=== PATIENT | female | born 1945 | race Asian ===

== ENCOUNTER 2018-12-08 12:37 | Inpatient (IN) | payer OTHER ==
--- NOTE | 2018-12-08 13:37 | EDPHY ---
H & P Stated Complaint: left leg swelling, referred from primary r/o DVT Time Seen by Provider: 12/08/18 12:53 HPI/ROS: Chief Complaint: Leg pain and swelling HPI: 73-year-old woman presenting with 3 days of worsening left leg pain and swelling. Patient presented to her primary care physician today for complaints of cough. They noted significant swelling in her left leg and calf. Patient states that this is been present for 2 days. Patient was sent down from primary care office for evaluation for DVT. The patient has had a little bit of shortness of breath and some mild pain with inspiration on the right side occasionally. She has been a little more more +couple weeks because of the snow. No recent travel. Does have a history of type 2 diabetes. Is on metformin and Lantus. Cough has been nonproductive. Has had some mild shortness of breath. ROS: 10 systems were reviewed and were negative except those elements noted in the HPI. PMH: Type 2 diabetes Social History: No smoking, no alcohol, no recreational drug use Family History: non-contributory Physical Exam: Gen: Awake, Alert, No Distress HEENT: Nose: no rhinorrhea Eyes: PERRLA, EOMI Mouth: Moist mucosa Neck: Supple, no JVD Chest: nontender, lungs clear to auscultation Heart: S1, S2 normal, no murmur Abd: Soft, non-tender, no guarding Back: no CVA tenderness, no midline tenderness Ext: Left calf is 38 cm right calf is 32 cm. Left calf is swollen and tense. Nonpitting edema. Right calf is soft. There is no erythema. Patient has tenderness with swelling up into her thigh as well. Skin: no rash Neuro: CN II-XII intact, Sensation grossly intact, Strength 5/5 in bilateral upper and lower extremities - Medical/Surgical History Hx Asthma: No Hx Chronic Respiratory Disease: No Hx Diabetes: Yes Hx Cardiac Disease: No Hx Renal Disease: No Hx Cirrhosis: No Hx Alcoholism: No Hx HIV/AIDS: No Hx Splenectomy or Spleen Trauma: No Other PMH: htn, restless legs, benign mass left parotid, diabetes - Social History Smoking Status: Former smoker Constitutional: Initial Vital Signs Temperature (C) 36.6 C 12/08/18 12:52 Heart Rate 104 H 12/08/18 12:52 Respiratory Rate 18 12/08/18 12:52 Blood Pressure 131/89 H 03/12/19 12:52 O2 Sat (%) 97 12/08/18 12:52 O2 Delivery Mode Room Air Allergies/Adverse Reactions: No Known Allergies Allergy (Unverified 12/08/18 12:57) Home Medications: Medication Instructions Recorded Ranitidine HCl 05/09/16 LYRICA 12/08/18 Lantus 12/08/18 Sleep Aid 12/08/18 Medical Decision Making - Diagnostics Imaging Results: Imaging Impressions Extremity Venous Study 12/08/18 13:16 Impression: Left leg positive deep venous thrombosis involving the left femoral vein, left common femoral vein, and possibly left common iliac vein. Findings and recommendations discussed with Emergency Department physician, Guerrero Loomis M.D., at 1420 hours, on December 08, 2018. Final report concurs with initial preliminary interpretation. ED Course/Re-evaluation: Ultrasound results noted. Patient has extensive clot that might extended to the iliacs. I have discussed with Dr. Martinez, interventional radiology. He has reviewed the ultrasound and is [place] is likely amenable to tPA. He agrees with the plan to start heparin drip here. No further investigations or dye load. Patient could possibly have a PE but she will be anticoagulated anyway. She will be able to have further workup in-hospital. I have discussed with Dr. Malik Boucher, hospitalist. He will admit to his service. Patient does not currently have findings suggesting phlegmasia cerlua dolens, but this is a concern given the size of this clot. Departure - Departure Disposition: [facility] Inpatient Acute Clinical Impression: DVT (deep venous thrombosis) Condition: Fair Referrals: Alexandria Magallon DO [Primary Care Provider] - As per Instructions
[2018-12-08] MEDS ORDERED: HEPARIN/DEXTROSE 500 ML IV ONE (14:38)
[2018-12-08] MEDS ORDERED: HEPARIN 10,000 UNIT/10 ML MDV (1,000 UNIT/ML) IVP ONE (14:38)
[2018-12-08 16:38] LABS: PLATELET COUNT 164 10^3/uL (150-400)
[2018-12-08 17:08] LABS: INR 1.15 (0.83-1.16); PROTIME(PATIENT) 14.2 SEC (12.0-15.0)
[2018-12-08] MEDS ORDERED: ONDANSETRON DISINTEGRATING 4 MG TAB PO PRN (18:07)
[2018-12-08] MEDS ORDERED: ONDANSETRON 4 MG/2 ML VIAL IVP PRN (18:07)
--- NOTE | 2018-12-08 18:28 | HOSPPROG ---
Hospitalist Progress Note Assessment/Plan: patient seen/examined/discussed w VLAD booker. Large proximal L leg DVT. consideration of catheter directed thrombolysis. agree w plan as outlined Objective: Vital Signs Temp Pulse Resp BP Pulse Ox 36.9 C 99 25 H 144/85 H 95 12/08/18 17:37 12/08/18 17:37 12/08/18 17:37 12/08/18 17:37 12/08/18 17:37 Laboratory Results 12/08/18 15:08 12/08/18 15:08 PT 14.2 SEC (12.0-15.0) 12/08/18 15:08 INR 1.15 (0.83-1.16) 12/08/18 15:08 ICD10 Worksheet Patient Problems: Problems Problem Status Onset DVT (deep venous thrombosis) Acute
[2018-12-08] MEDS ORDERED: HEPARIN/DEXTROSE 500 ML IV SCH (18:30)
[2018-12-08] MEDS ORDERED: HEPARIN 10,000 UNIT/10 ML MDV (1,000 UNIT/ML) IVP PRN (18:30)
[2018-12-08] MEDS ORDERED: D50W 25 GM/50 ML SYR IVP PRN (18:41)
--- NOTE | 2018-12-08 18:54 | PDGENHP ---
History and Physical - Chief Complaint Left lower extremity pain and swelling - History of Present Illness 73 y/o female w/ hx of hypertension, left parotid benign mass, diabetes II, and diabetic neuropathy presents from urgent care w/ c/o left lower extremity pain and swelling that has persisted for 3 days. She has a mild cough, feels short of breath, and c/o right-sided chest pain w/ deep inspiration. Doppler was performed and it shows she has an extensive DVT involving the femoral vein, common femoral vein and possibly the common iliac vein. No recent travel. Leads a mostly sedentary lifestyle. She was transferred from urgent care to here for further treatment and monitoring. Denies nausea, vomiting, diarrhea, constipation, palpitations, fever, chills. History Information - Allergies/Home Medication List Allergies/Adverse Reactions: No Known Allergies Allergy (Unverified 12/08/18 12:57) Home Medications: Ranitidine HCl 05/09/16 [Last Taken Unknown] LYRICA 12/08/18 [Last Taken Unknown] Lantus 12/08/18 [Last Taken Unknown] Sleep Aid 12/08/18 [Last Taken Unknown] I have personally reviewed and updated: family history, medical history, social history, surgical history - Past Medical History diabetes type 2, hypertension Additional medical history: Left parotid benign mass. Diabetic neuropathy - Surgical History Additional surgical history: Parotidectomy (2015) - Family History Positive for: diabetes type II, CAD - Social History Smoking Status: Former smoker Alcohol Use: None Drug Use: None Additional social history: Lives in [place]. Came here in September 2018. . Review of Systems Review of Systems: ROS: 10pt was reviewed & negative except for what was stated in HPI & below Physical Exam Physical Exam: Lab data and imaging were reviewed. Case discussed w/admitting physician, Dr. Damion Boucher, and IR Dr. Rick Spann. US Doppler: see HPI BUN/Cr: 20/1.0 Temp Pulse Resp BP Pulse Ox 36.9 C 103 H 32 H 152/76 H 96 12/08/18 17:37 12/08/18 18:36 12/08/18 18:36 12/08/18 18:36 12/08/18 18:36 Constitutional: no apparent distress, appears nourished, uncomfortable Eyes: PERRL, anicteric sclera, EOMI Ears, Nose, Mouth, Throat: moist mucous membranes, hearing normal, ears appear normal, no oral mucosal ulcers Cardiovascular: regular rate and rhythym, no murmur, rub, or gallop, tachycardia , No edema Peripheral Pulses: 2+: dorsalis-pedis (R) (Radial 2+), dorsalis-pedis (L) ( Radial 2+; pedal pulse easily palpable) Respiratory: reduced air movement Gastrointestinal: normoactive bowel sounds, soft, non-tender abdomen, no palpable masses Genitourinary: no bladder fullness, no bladder tenderness Skin: warm, normal color (LLE edematous), other Musculoskeletal: pain with ROM (LLE) Neurologic: AAOx3, sensation intact bilaterally, CN II-XII Intact Psychiatric: interacting appropriately, not anxious, not encephalopathic, thought process linear Lymph, Heme, Immunologic: no cervical LAD, no supraclavicular LAD Lab Data & Imaging Review 12/08/18 15:08 12/08/18 15:08 WBC 8.19 10^3/uL (3.80-9.50) 12/08/18 15:08 RBC 4.92 10^6/uL (4.18-5.33) 12/08/18 15:08 Hgb 14.1 g/dL (12.6-16.3) 12/08/18 15:08 Hct 41.6 % (38.0-47.0) 12/08/18 15:08 MCV 84.6 fL (81.5-99.8) 12/08/18 15:08 MCH 28.7 pg (27.9-34.1) 12/08/18 15:08 MCHC 33.9 g/dL (32.4-36.7) 12/08/18 15:08 RDW 12.9 % (11.5-15.2) 12/08/18 15:08 Plt Count 164 10^3/uL (150-400) 12/08/18 15:08 MPV 10.1 fL (8.7-11.7) 12/08/18 15:08 Neut % (Auto) 70.9 % (39.3-74.2) 12/08/18 15:08 Lymph % (Auto) 20.8 % (15.0-45.0) 12/08/18 15:08 [place] % (Auto) 6.3 % (4.5-13.0) 12/08/18 15:08 Eos % (Auto) 1.6 % (0.6-7.6) 12/08/18 15:08 Baso % (Auto) 0.2 % (0.3-1.7) L 12/08/18 15:08 Nucleat RBC Rel Count 0.0 % (0.0-0.2) 12/08/18 15:08 Absolute Neuts (auto) 5.80 10^3/uL (1.70-6.50) 12/08/18 15:08 Absolute Lymphs (auto) 1.70 10^3/uL (1.00-3.00) 12/08/18 15:08 Absolute Monos (auto) 0.52 10^3/uL (0.30-0.80) 12/08/18 15:08 Absolute Eos (auto) 0.13 10^3/uL (0.03-0.40) 12/08/18 15:08 Absolute Basos (auto) 0.02 10^3/uL (0.02-0.10) 12/08/18 15:08 Absolute Nucleated RBC 0.00 10^3/uL (0-0.01) 12/08/18 15:08 Immature Gran % 0.2 % (0.0-1.1) 12/08/18 15:08 Immature Gran # 0.02 10^3/uL (0.00-0.10) 12/08/18 15:08 PT 14.2 SEC (12.0-15.0) 12/08/18 15:08 INR 1.15 (0.83-1.16) 12/08/18 15:08 APTT 26.8 SEC (23.0-38.0) 12/08/18 15:08 Sodium 133 mEq/L (135-145) L 12/08/18 15:08 Potassium 4.8 mEq/L (3.5-5.2) 12/08/18 15:08 Chloride 108 mEq/L (97-110) 12/08/18 15:08 Carbon Dioxide 20 mEq/l (22-31) L 12/08/18 15:08 Anion Gap 5 mEq/L (6-14) L 12/08/18 15:08 BUN 20 mg/dL (7-23) 12/08/18 15:08 Creatinine 1.0 mg/dL (0.6-1.0) 12/08/18 15:08 Estimated GFR 55 12/08/18 15:08 Glucose 225 mg/dL (70-100) H 12/08/18 15:08 Calcium 8.7 mg/dL (8.5-10.4) 12/08/18 15:08 Assessment & Plan Assessment: 73 y/o female w/ hx of DM II, diabetic neuropathy, hx of left parotid benign mass s/p parotidectomy in 2016, RLS, and HTN presents from urgent care w/ extensive LLE DVT. Heparin drip was initiated at urgent care before she was transferred to our facilities. 1. Acute LLE DVT: Femoral vein, common femoral vein, and possibly common iliac vein involved. Palpable pulse 2+, sensation intact, skin is warm no discoloration. Edematous. Phlegmasia cerulea dolens not present. -IR consulted - I spoke to Dr. Rick Spann who will perform catheter thrombolytics in AM -Heparin drip initiated in house -Cont monitoring 2. Shortness of breath: She is saturating on RA 97% however has been tachycardic throughout her stay (running 99-103 bpm). Considering her condition as listed above, she is at high risk for pulmonary embolism. -Chest CTA pending to evaluate possible PE/PEs -on heparin drip 3. Diabetes: ISS while in house, glucose checks TID before meals. Will continue her home lantus once medications have been reconciled by pharmacy. 4. HTN: stable at this time. Continue to monitor. Diet: Card-controlled, NPO at midnight tonight VTE ppx: Heparin drip Code: Full Dispo: Admit to inpatient
[2018-12-08] MEDS ORDERED: IOPAMIDOL (ISOVUE 370) 100 ML BTL IV ONE (20:16)
[2018-12-09 04:44] LABS: PLATELET COUNT 164 10^3/uL (150-400)
[2018-12-09] MEDS ORDERED: GUAIFENESIN/DM 10 ML UDCUP PO PRN (04:48)
[2018-12-09] MEDS ORDERED: PROTAMINE SULFATE 50 MG/5 ML VIAL IVP PRN (07:36)
[2018-12-09] MEDS ORDERED: fentaNYL 100 MCG/2 ML INJ IVP PRN (07:36)
[2018-12-09] MEDS ORDERED: MEPERIDINE 25 MG/ML SYR IVP PRN (07:36)
[2018-12-09] MEDS ORDERED: FLUMAZENIL 0.5 MG/5 ML MDV IVP PRN (07:36)
[2018-12-09] MEDS ORDERED: MIDAZOLAM 2 MG/2 ML VIAL IVP PRN (07:36)
[2018-12-09] MEDS ORDERED: HEPARIN 10,000 UNIT/10 ML MDV (1,000 UNIT/ML) IVP PRN (07:36)
[2018-12-09] MEDS ORDERED: GLUCAGON HCL 1 MG VIAL IVP PRN (07:36)
[2018-12-09] MEDS ORDERED: NALOXONE HCL 0.4 MG/ML INJ IVP PRN (07:36)
[2018-12-09] MEDS ORDERED: ALTEPLASE 2 MG VIAL IVP PRN (07:36)
[2018-12-09] MEDS: INSULIN LISPRO 100 UNIT/ML SC SCH ×3 (09:12→19:42)
[2018-12-09 09:22] LABS: INR 1.25 (0.83-1.16); PROTIME(PATIENT) 15.2 SEC (12.0-15.0)
--- NOTE | 2018-12-09 10:04 | PDHPUP ---
History & Physical Update H&P update statement: This history and physical update is based on an assessment of the patient which was completed after admission or registration (within 24 hours), but prior to the surgery/procedure. Massive LLE DVT with probable extension into iliac vessels. Plan for catheter directed thrombolysis. H&P update: H&P reviewed & patient examined, no change in patient's condition since H&P completed
--- NOTE | 2018-12-09 10:04 | PDPROPOC ---
Sedation Plan of Care Sedation Plan of Care: vital signs stable, mental status noted, patient educated of risks, benefits, alternatives, patient can tolerate sedation ASA Classification: ASA 2 Planned drugs: fentanyl, midazolam Mallampati Score: Class 2 Mallampati Reference Image: Patient passed 3-3-2 rule?: Yes
[2018-12-09] MEDS ORDERED: IOPAMIDOL (ISOVUE-300) 100 ML BTL ONE (10:11)
[2018-12-09] MEDS ORDERED: MIDAZOLAM 2 MG/2 ML VIAL ONE ×2 (10:20→10:40)
[2018-12-09] MEDS ORDERED: FLUMAZENIL 0.5 MG/5 ML MDV IVP ONE (10:20)
[2018-12-09] MEDS ORDERED: NALOXONE HCL 0.4 MG/ML INJ ONE (10:21)
[2018-12-09] MEDS ORDERED: fentaNYL 100 MCG/2 ML INJ ONE (10:21)
[2018-12-09] MEDS ORDERED: ALTEPLASE 5 MG in NS 100 ML IV ONE (11:00)
[2018-12-09] MEDS ORDERED: LIDOCAINE 1% 300 MG/30 ML SDV ONE (13:05)
--- NOTE | 2018-12-09 17:22 | PDRADPN ---
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 Initiation of catheter directed thombolysis. Inf/Abcess present in the surg proc area at time of surgery?: No
[2018-12-09] MEDS ORDERED: HEPARIN/DEXTROSE 500 ML IV SCH (17:30)
[2018-12-09] MEDS ORDERED: ALTEPLASE 5 MG in NS 100 ML IV SCH (17:30)
[2018-12-09] MEDS: ALTEPLASE 5 MG in NS 100 ML IV SCH (20:49)
--- NOTE | 2018-12-09 20:50 | ASMTCMCOM ---
CM Note CM Note Notes: Pt discussed in multi-discipline rounds. Pt is a 73yr old female admitted with left leg pain for 3 days, slight cough and SOB. Test/Scans showed a large DVT. Pt admitted for Heparin IV therapy overnight and to Intervention Radiology this morning for a thrombectomy. CM available should needs arise. Plan: TBD Date Signed: 12/09/2018 08:49 PM Electronically Signed By:Dania Fields
[2018-12-09] MEDS: INSULIN GLARGINE 100 UNITS/ML UNIT SC SCH (21:10)
[2018-12-09] MEDS: MELATONIN 3 MG TAB PO SCH (21:29)
--- NOTE | 2018-12-09 21:59 | PDMN ---
Medical Necessity Medical necessity: Pt meets inpt criteria per MD order and MCG M-350, Deep Venous Thrombosis of Lower Extremities, A-4 days. 73 y/o w/hx DM type 2, diabetic neuropathy, hx L parotid benign mass and paotidectomy, RLS, and HTN presented to ED from urgent care w/extensive LLE DVT, SOB, tachy, at high risk for PE. 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 Est LOS>2MN for ongoing eval/management of above .
[2018-12-10] MEDS: ALTEPLASE 5 MG in NS 100 ML IV SCH ×3 (02:02→13:12)
[2018-12-10 05:08] LABS: PLATELET COUNT 144 10^3/uL (150-400)
[2018-12-10] MEDS: INSULIN LISPRO 100 UNIT/ML SC SCH ×3 (07:57→18:43)
--- NOTE | 2018-12-10 13:40 | HOSPPROG ---
Hospitalist Progress Note Assessment/Plan: [age] female admitted with large left proximal DVT. Acute LLE DVT: Femoral vein, common femoral vein, and possibly common iliac vein involved. Taken to IR yesterday for lysis. Drain in. Plan to return to IR today. -continue heparin drip -iron to see Diabetes: ISS while in house, glucose checks TID before meals. Will continue her home lantus once medications have been reconciled by pharmacy. HTN: stable at this time. Continue to monitor. Diet: Diabetic VTE ppx: Heparin drip Code: Full Dispo: ICU while on tPA Subjective: Still some discomfort in the left leg but diminished. Objective: Vital Signs Temp Pulse Resp BP Pulse Ox 36.9 C 104 H 23 H 135/74 H 95 12/10/18 08:00 12/10/18 12:00 12/10/18 12:00 12/10/18 12:00 12/10/18 12:00 Laboratory Results 12/10/18 05:00 12/10/18 05:00 12/09/18 12/10/18 12/11/18 05:59 05:59 05:59 Intake Total 759 957 Output Total 450 Balance 759 507 PT 15.2 SEC (12.0-15.0) H 12/09/18 08:50 INR 1.25 (0.83-1.16) H 12/09/18 08:50 - Physical Exam Constitutional: no apparent distress, appears nourished, not in pain Eyes: PERRL, anicteric sclera, EOMI Ears, Nose, Mouth, Throat: moist mucous membranes, hearing normal, ears appear normal, no oral mucosal ulcers Cardiovascular: regular rate and rhythym, no murmur, rub, or gallop Respiratory: no respiratory distress, no rales or rhonchi, clear to auscultation Gastrointestinal: normoactive bowel sounds, soft, non-tender abdomen, no palpable masses Genitourinary: no bladder fullness, no bladder tenderness, no renal bruits Skin: no rashes or abrasions, no fluctuance, no induration Musculoskeletal: full muscle strength, no muscle tenderness, normal joint ROM, other (Left lower extremity with catheter in. Substantial swelling although improved from yesterday.) Neurologic: AAOx3, sensation intact bilaterally Psychiatric: interacting appropriately, not anxious, not encephalopathic, thought process linear Lymph, Heme, Immunologic: no cervical LAD, no supraclavicular LAD ICD10 Worksheet Patient Problems: Problems Problem Status Onset DVT (deep venous thrombosis) Acute
[2018-12-10] MEDS ORDERED: MEPERIDINE 25 MG/ML SYR IVP PRN (16:20)
[2018-12-10] MEDS ORDERED: MIDAZOLAM 2 MG/2 ML VIAL IVP PRN (16:20)
[2018-12-10] MEDS ORDERED: NALOXONE HCL 0.4 MG/ML INJ IVP PRN (16:20)
[2018-12-10] MEDS ORDERED: fentaNYL 100 MCG/2 ML INJ IVP PRN (16:20)
[2018-12-10] MEDS ORDERED: FLUMAZENIL 0.5 MG/5 ML MDV IVP PRN (16:20)
[2018-12-10] MEDS ORDERED: NS 1,000 ML IV SCH (16:30)
[2018-12-10] MEDS ORDERED: IOPAMIDOL (ISOVUE-300) 100 ML BTL ONE ×2 (17:12→18:55)
--- NOTE | 2018-12-10 18:22 | PDRADPN ---
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 STENTED FOR MAY-THURNER SYNDROME. LONG SEGMENT ILIAC STENOSIS. Inf/Abcess present in the surg proc area at time of surgery?: No
[2018-12-10] MEDS: APIXABAN 5 MG TAB PO SCH (21:22)
[2018-12-10] MEDS: INSULIN GLARGINE 100 UNITS/ML UNIT SC SCH (21:22)
[2018-12-11] MEDS: MELATONIN 3 MG TAB PO SCH ×2 (00:09→20:40)
[2018-12-11 05:34] LABS: PLATELET COUNT 148 10^3/uL (150-400)
[2018-12-11] MEDS: INSULIN LISPRO 100 UNIT/ML SC SCH ×3 (07:40→17:08)
[2018-12-11] MEDS: APIXABAN 5 MG TAB PO SCH ×2 (09:07→20:40)
--- NOTE | 2018-12-11 11:59 | ASMTCMCOM ---
CM Note CM Note Notes: Pt is here from [place] visiting with son Mohsen ) for a month or so. PT and OT to consult. Son is Ok if rehab is recommended to get Pt stronger and he does not have a choice where she goes. Pt will likely transfer out of ICU to a floor today after her CXR. Pt with a cough and developing soreness in her chest. Pt will be staying with her Son and his here in [place], they: both" Work during the day. CM available for needs. PLAN TBD once PT/OT consults Date Signed: 12/11/2018 11:58 AM Electronically Signed By:Dania Fields
--- NOTE | 2018-12-11 16:37 | HOSPPROG ---
Hospitalist Progress Note Assessment/Plan: [age] year female admitted with large left proximal DVT. undwernt thrombolysis and stent placement for January Thurner. 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 underwent thrombolysis and stent placement. Transitioned over to eliquis today. -Eliquis 10mg bid X7 days then 5mg BID Diabetes: ISS while in house, glucose checks TID before meals. resume home lantus. HTN: stable at this time. Continue to monitor. Diet: Diabetic VTE ppx: Heparin drip Code: Full Dispo: inpatient, planned to discharge today but son and family concerned she is too weak on her leg after stent. Awaiting PT/OT assessment prior to dc. Likely dc in am. Subjective: leg still hurts. no other complaints. Objective: Vital Signs Temp Pulse Resp BP Pulse Ox 37.4 C 110 H 28 H 133/81 H 95 12/11/18 15:58 12/11/18 15:58 12/11/18 15:58 12/11/18 15:58 12/11/18 15:58 Laboratory Results 12/11/18 05:15 12/11/18 05:15 12/10/18 12/11/18 12/12/18 05:59 05:59 05:59 Intake Total 957 1750 Output Total 450 850 275 Balance 507 900 -275 PT 15.2 SEC (12.0-15.0) H 12/09/18 08:50 INR 1.25 (0.83-1.16) H 12/09/18 08:50 - Physical Exam Constitutional: no apparent distress, appears nourished, not in pain Eyes: PERRL, anicteric sclera, EOMI Ears, Nose, Mouth, Throat: moist mucous membranes, hearing normal, ears appear normal, no oral mucosal ulcers Cardiovascular: regular rate and rhythym, no murmur, rub, or gallop Respiratory: no respiratory distress, no rales or rhonchi, clear to auscultation Gastrointestinal: normoactive bowel sounds, soft, non-tender abdomen, no palpable masses Genitourinary: no bladder fullness, no bladder tenderness, no renal bruits Skin: no rashes or abrasions, no fluctuance, no induration Musculoskeletal: full muscle strength, no muscle tenderness, normal joint ROM Neurologic: AAOx3, sensation intact bilaterally Psychiatric: interacting appropriately, not anxious, not encephalopathic, thought process linear Lymph, Heme, Immunologic: no cervical LAD, no supraclavicular LAD ICD10 Worksheet Patient Problems: Problems Problem Status Onset DVT (deep venous thrombosis) Acute
[2018-12-11] MEDS ORDERED: BISACODYL 10 MG SUPP PR PRN (16:38)
[2018-12-11] MEDS ORDERED: LACTULOSE 20 GM/30 ML UDCUP PO PRN (16:38)
[2018-12-11] MEDS ORDERED: MAGNESIUM HYDROXIDE 30 ML UDCUP PO PRN (16:38)
[2018-12-11] MEDS: SENNOSIDES/DOCUSATE SODIUM TAB PO SCH ×2 (17:03→20:40)
[2018-12-11] MEDS: BENZONATATE 100 MG CAP PO PRN (17:04)
[2018-12-11] MEDS: HYDROCODONE/APAP 5/325 TAB PO PRN (20:50)
[2018-12-11] MEDS: INSULIN GLARGINE 100 UNITS/ML UNIT SC SCH (22:14)
[2018-12-12] MEDS: INSULIN LISPRO 100 UNIT/ML SC SCH ×3 (08:44→17:09)
[2018-12-12] MEDS: HYDROCODONE/APAP 5/325 TAB PO PRN ×2 (09:03→22:08)
[2018-12-12] MEDS: SENNOSIDES/DOCUSATE SODIUM TAB PO SCH ×2 (09:04→22:08)
[2018-12-12] MEDS: APIXABAN 5 MG TAB PO SCH ×2 (09:04→22:08)
[2018-12-12] MEDS: PREGABALIN 50 MG CAP PO SCH ×2 (09:51→22:08)
[2018-12-12] MEDS: ACETAMINOPHEN 325 MG TAB PO PRN (12:31)
[2018-12-12] MEDS: POLYETHYLENE GLYCOL 3350 17 GM PKT PO PRN (12:31)
--- NOTE | 2018-12-12 14:50 | ASMTCMCOM ---
CM Note CM Note Notes: 12/12/2018 Case Management Note Met w/pt and son Mohsen to discuss d/c needs. Pt lives part of the year here in [place] with son and part of the year with daughter in [facility]. Team is recommending SNF rehab. Pt in agreement. Provided SNF list. Pt and son requested referrals to [facility] and [facility]. [facility] is top choice. Faxed via [employer]. SNF will need to get auth prior to accepting patient. Case Management d/c poc: SNF rehab pending acceptance and auth. Case Management to follow. Date Signed: 12/12/2018 02:49 PM Electronically Signed By:Latonia Mckeon RN
--- NOTE | 2018-12-12 15:10 | HOSPPROG ---
Hospitalist Progress Note Assessment/Plan: [age] year female admitted with large left proximal DVT. undwernt thrombolysis and stent placement for May Thurner. 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 underwent thrombolysis and stent placement. Transitioned to [facility] PNA: started on levofloxacin generalized weakness: limiting ability to dc home, discussed with CM/nursing and patients son--recommendation is for SNF but unclear if patient would be amenable to that--son will discuss with her Diabetes: ISS while in house, glucose checks TID before meals. resume home lantus. HTN: stable at this time. Continue to monitor. Diet: Diabetic VTE ppx: eliquis Code: Full Dispo: inpatient, ? dc to snf Subjective: no significant overnight events, patient remains weak but able to walk short distances with walker Objective: Vital Signs Temp Pulse Resp BP Pulse Ox 36.8 C 103 H 20 112/64 93 12/12/18 11:09 12/12/18 11:09 12/12/18 11:09 12/12/18 11:09 12/12/18 11:09 Microbiology 12/11/18 20:50 Respiratory Panel (PCR) - Final Nasal, Sinus - Anaerobic Tube/Swab No Organism Detected By Pcr Laboratory Results 12/11/18 05:15 12/11/18 05:15 12/11/18 12/12/18 12/13/18 05:59 05:59 05:59 Intake Total 1750 1460 Output Total 850 1675 500 Balance 900 -215 -500 PT 15.2 SEC (12.0-15.0) H 12/09/18 08:50 INR 1.25 (0.83-1.16) H 12/09/18 08:50 dConstitutional: no apparent distress, appears nourished, not in pain Eyes: anicteric sclera, EOMI Ears, Nose, Mouth, Throat: hearing normal Cardiovascular: regular rate and rhythym, no murmur, rub, or gallop Respiratory: no respiratory distress, no rales or rhonchi, clear to auscultation Gastrointestinal: normoactive bowel sounds, soft, non-tender abdomen, no palpable masses Skin: no rashes or abrasions, no fluctuance, no induration Musculoskeletal: full muscle strength, no muscle tenderness, normal joint ROM Neurologic: AAOx3, sensation intact bilaterally Psychiatric: interacting appropriately, not anxious, not encephalopathic, thought process linear - Time Spent With Patient Time Spent with Patient: greater than 35 minutes Time Spent with Patient: Greater than 35 minutes spent on this patients care, greater than 50% of time spent counseling, educating, and coordinating care regarding the above mentioned plan. ICD10 Worksheet Patient Problems: Problems Problem Status Onset DVT (deep venous thrombosis) Acute
[2018-12-12] MEDS: INSULIN GLARGINE 100 UNITS/ML UNIT SC SCH (22:07)
[2018-12-12] MEDS: MELATONIN 3 MG TAB PO SCH (22:08)
[2018-12-13 05:25] LABS: PLATELET COUNT 154 10^3/uL (150-400)
[2018-12-13] MEDS: INSULIN LISPRO 100 UNIT/ML SC SCH ×3 (09:22→18:33)
[2018-12-13] MEDS: APIXABAN 5 MG TAB PO SCH ×2 (10:28→20:18)
[2018-12-13] MEDS: PREGABALIN 50 MG CAP PO SCH ×2 (10:28→20:18)
[2018-12-13] MEDS: SENNOSIDES/DOCUSATE SODIUM TAB PO SCH ×2 (10:28→20:19)
[2018-12-13] MEDS: POLYETHYLENE GLYCOL 3350 17 GM PKT PO PRN (10:34)
[2018-12-13] MEDS: ACETAMINOPHEN 325 MG TAB PO PRN ×2 (10:39→21:01)
--- NOTE | 2018-12-13 12:25 | ASMTCMCOM ---
CM Note CM Note Notes: 12/13/2018 Case Management Note Discussed with this morning. Spoke with Martha from [facility] on the phone and requested auth. Case Management d/c poc: [facility] SN[facility] rehab pending auth. Case Management to follow. Date Signed: 12/13/2018 12:24 PM Electronically Signed By:Latonia Mckeon RN
--- NOTE | 2018-12-13 16:32 | HOSPPROG ---
Hospitalist Progress Note Assessment/Plan: [age] year female admitted with large left proximal DVT. undwernt thrombolysis and stent placement for May Thurner. 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 underwent thrombolysis and stent placement. Transitioned to eliquis. Overall doing well, son concerned about residual left ankle swelling though in general leg looks better, recommending elevation LLL PNA: started on levofloxacin and symptomatically improved, transition to oral for dc, would complete 7 day course generalized weakness: limiting ability to dc home, discussed with CM/nursing and patients son--recommendation is for SNF, CM involved in setting that up Diabetes: ISS while in house, glucose checks TID before meals. resume home lantus. HTN: stable at this time. Continue to monitor. Diet: Diabetic VTE ppx: eliquis Code: Full Dispo: inpatient, ? dc to snf Subjective: no significant overnight events, patient feeling a bit better, did have some eye crusting this am but no discharge Objective: Vital Signs Temp Pulse Resp BP Pulse Ox 36.6 C 81 19 114/68 97 12/13/18 15:37 12/13/18 15:37 12/13/18 15:37 12/13/18 15:37 12/13/18 15:37 Laboratory Results 12/13/18 05:10 12/13/18 05:10 12/12/18 12/13/18 12/14/18 05:59 05:59 05:59 Intake Total 1460 1660 Output Total 1675 500 Balance -215 1160 PT 15.2 SEC (12.0-15.0) H 12/09/18 08:50 INR 1.25 (0.83-1.16) H 12/09/18 08:50 awake alert anicteric, sclera clear, no discharge op clear rrr no mrg left basilar rales, good air mvmt soft nt nd lle edematous warm dry well perfused oriented appropriate ICD10 Worksheet Patient Problems: Problems Problem Status Onset DVT (deep venous thrombosis) Acute
[2018-12-13] MEDS: MELATONIN 3 MG TAB PO SCH (20:18)
[2018-12-13] MEDS: INSULIN GLARGINE 100 UNITS/ML UNIT SC SCH (21:01)
[2018-12-14] MEDS: TEARS/DEXTRAN 70/HYPROMELLOSE 15 ML OPHT.BTL EACHEYE PRN ×2 (06:18→21:25)
[2018-12-14] MEDS: INSULIN LISPRO 100 UNIT/ML SC SCH ×3 (09:57→18:53)
[2018-12-14] MEDS: PREGABALIN 50 MG CAP PO SCH ×2 (10:32→21:22)
[2018-12-14] MEDS: SENNOSIDES/DOCUSATE SODIUM TAB PO SCH ×2 (10:32→21:22)
[2018-12-14] MEDS: APIXABAN 5 MG TAB PO SCH ×2 (10:33→21:22)
--- NOTE | 2018-12-14 12:58 | HOSPPROG ---
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, status post successful thrombolysis and stent placement -on Eliquis at this time and will continue that * Left lower lobe pneumonia, improving on Levaquin; 5 days of treatment should be sufficient to manage this * Generalized weakness and deconditioning, gait instability with high fall risk in a patient on anticoagulant -plan is to [facility] the patient [facility] * Newly identified subareolar mass in the right breast by her CT scan in the ER along with several small lung nodules -I have discussed these findings on the CT scan with the patient and son at the bedside today in detail -I will have Dr. Molly Herrera visit the patient for examination and review of the CT scan findings and make plans for more definitive assessment -if excision is recommended, would delay that until she has been on anticoagulant for a couple weeks or more in order to ensure that she has good outcome after her thrombolysis and stent placement left leg * Diabetes mellitus on insulin * Hypertension on therapy Seen by me on hospitals rounds as well as multidisciplinary rounds today I have consulted Dr. 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, my review: Sinus rhythm Exam: (seen at the bedside today with her son; her son acted as finisher plate intermittently as needed which is the preference of the patient and son instead of using the online service that we have here) alert oriented skin warm dry color ok resps not labored lungs clear BSs heart regular abd soft nondistended nontender, bowel sounds present limbs warm, no edema iv site ok Lab data: Blood sugars are fluctuating a bit, mostly in good range for inpatient care, occasionally slightly over 200 Objective: Vital Signs Temp Pulse Resp BP Pulse Ox 36.9 C 98 24 H 119/75 97 12/14/18 12:00 12/14/18 12:00 12/14/18 12:00 12/14/18 12:00 12/14/18 12:00 Laboratory Results 12/13/18 05:10 12/13/18 05:10 12/13/18 12/14/18 12/15/18 06:59 06:59 06:59 Intake Total 1660 1180 Output Total 500 Balance 1160 1180 PT 15.2 SEC (12.0-15.0) H 12/09/18 08:50 INR 1.25 (0.83-1.16) H 12/09/18 08:50 - Time Spent With Patient Time Spent with Patient: greater than 35 minutes Time Spent with Patient: Greater than 35 minutes spent on this patients care, greater than 50% of time spent counseling, educating, and coordinating care regarding the above mentioned plan. ICD10 Worksheet Patient Problems: Problems Problem Status Onset DVT (deep venous thrombosis) Acute
[2018-12-14] MEDS: MELATONIN 3 MG TAB PO SCH (21:22)
[2018-12-14] MEDS: ACETAMINOPHEN 325 MG TAB PO PRN (21:23)
[2018-12-14] MEDS: INSULIN GLARGINE 100 UNITS/ML UNIT SC SCH (21:29)
[2018-12-15] MEDS: SENNOSIDES/DOCUSATE SODIUM TAB PO SCH (08:40)
[2018-12-15] MEDS: INSULIN LISPRO 100 UNIT/ML SC SCH ×2 (08:40→13:16)
[2018-12-15] MEDS: BENZONATATE 100 MG CAP PO PRN (08:40)
[2018-12-15] MEDS: PREGABALIN 50 MG CAP PO SCH (08:40)
[2018-12-15] MEDS: APIXABAN 5 MG TAB PO SCH (08:40)
--- NOTE | 2018-12-15 15:33 | PDIAF ---
- Diagnosis Diagnosis: DVT/May Garcia left leg s/p lysis, stent; pneumonia; subareolar nodule righ Code Status: Full Code - Medication Management Additional Medication Instructions: LEVAQUIN to be stopped after December 18 dose. ELIQUIS 10 mg twice daily should be decreased to 5 mg twice daily after December 17 doses Discharge Medications: electronically signed and located in the Home Medication List. - Orders Services needed: Registered Nurse, Certified Leaf Fat Scraper, Master Director Of Pupil Personnel Program , Physical Therapy, Occupational Therapy Diet Recommendation: no restrictions on diet Diet Texture: Regular Texture Diet Activity/Weight Bearing Restrictions: Full weight-bearing allowed Equipment: Walker - Follow Up Care Current Providers and Referrals: Molly Herrera MD [Medical Doctor] - Alexandria Magallon DO [Primary Care Provider] - As per Instructions
[2018-12-15 15:38] VITALS: BP 141/90
--- NOTE | 2018-12-15 15:38 | PDIAF ---
- Diagnosis Diagnosis: DVT/May Garcia left leg s/p lysis, stent; pneumonia; subareolar nodule righ Code Status: Full Code - Medication Management Additional Medication Instructions: LEVAQUIN to be stopped after December 18 dose. ELIQUIS 10 mg twice daily should be decreased to 5 mg twice daily after December 17 doses. Tessalon Perles ordered are very helpful for her at bedtime as cough keeps her awake at night currently Discharge Medications: electronically signed and located in the Home Medication List. - Orders Services needed: Registered Nurse, Certified Power House Control Room Operator, Master Assistant Cross Country Coach , Physical Therapy, Occupational Therapy Diet Recommendation: no restrictions on diet Diet Texture: Regular Texture Diet Activity/Weight Bearing Restrictions: Full weight-bearing allowed Equipment: Walker - Follow Up Care Current Providers and Referrals: Molly Herrera MD [Medical Doctor] - Alexandria Magallon DO [Primary Care Provider] - As per Instructions
--- NOTE | 2018-12-15 15:41 | PDDCSUM ---
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 Herrera * Chronic diabetes mellitus well controlled here * Chronic hypertension CONSULTANTS: Dr. Molly Hidalgo PROCEDURES: CT scan of chest Intravenous thrombolysis of proximal left leg DVT with placement of venous stent HOSPITAL COURSE SUMMARY: This patient came into the hospital with a complaint of 3 days of left leg pain and was found to have extensive obstructing DVT proximally and extending into the iliac veins. 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 She has had no complications after this and has been taking Eliquis and tolerating that well. In addition the patient has had cough and some fever and dyspnea and is noted to have a small right lung pneumonia at the time of admission. She has been taking antibiotic for that and is improving nicely. At this point she is up and walking around in the hallway without any supplemental oxygen but she is weak and needing a walker and an syrup mixer assistant to be with her. She is stable for discharge from the hospital at this point as far as these issues go, but is felt she needs further rehabilitation and so [facility]. Incidentally it was noted here that she has on CT scan some multiple small lung nodules too small to characterize or biopsy. Is recommended to repeat CT scan in 1 year for that. Additionally there was on the CT scan incidentally noted a right retroareolar nodule. She was seen by Dr. Molly zuniga for this and her examination was unremarkable. Plan is to have her get outpatient imaging with ultrasound and mammo g and see Dr. Herrera in clinic after that. This has been reviewed in detail with the patient and her son and they understand the issues and recommended plans and agree. The patient has hypertension and diabetes and there were no major issues with those here in the hospital. She is continued on her usual medicines. PENDING TEST RESULTS: None MEDICATION CHANGES: Addition of Eliquis twice daily therapy for DVT Addition of Levaquin 750 mg for 3 more days P.r.n. Cough medicines FOLLOW-UP PLAN: At this time [facility] therapy occupational therapy rehabilitation She will be having outpatient mammogram and breast ultrasound arranged by Dr. Molly Herrera, and Dr. Herrera will see the patient in clinic after those studies are done to review results with the patient and her son Greater than 35 minutes bedside and care coordination time today
--- NOTE | 2018-12-15 16:24 | ASMTDCNOTE ---
Case Management Discharge Discharge Order Complete? Answers: Yes Patient to Obtain Answers: Other Notes: [facility] Medications Transportation Arranged Answers: Family/Friends EMTALA Complete Answers: No Case Management Transport Answers: No Form Complete Faxed Final Orders Answers: Yes Agency/Facility Transfer Answers: Yes Report Printed & Faxed to Receiving Agency Family Notified Answers: Yes Discharge Comments Notes: Pts case discussed in tx rounds. Pt is being d/c'd today to [facility]. [facility] was able to obtain auth. DC orders sent. CM spoke to pts son and he will provide transportation. [facility] will call to give report. CM available for changes. Plan: [facility] Date Signed: 12/15/2018 04:23 PM Electronically Signed By:KODY Hsieh
--- NOTE | 2018-12-15 16:24 | ASDISCHSUM ---
Discharge Information Plan Status:SNF Medically Cleared to Leave:12/15/2018 Discharge Date:12/15/2018 CM D/C Disposition: ADT D/C Disposition:[facility] Facility Projected Discharge Date:12/15/2018 11:00 AM Transportation at D/C: Discharge Delay Reason: Follow-Up Date:12/15/2018 11:00 AM Discharge Slot: Final Diagnosis: Placement Information Referral Type:*Snf/SNF Referral ID:[id number] Provider Name:Deyanira Ospina Address 1[address] [facility] Phone Number: Address 2: Fax Number: City:[place] Selection Factors: State:[place] Patient Contact Information Contact Name:BREANNA Relationship:Son Address:[address] [place] [address] Work Phone: City:[place] Phone: State/[facility] Code:[place] [address] Email: Financial Information Financial Class:Medicare Advantage Plans Primary Plan Desc:[facility] ADVANTAGE PLANS Primary Plan Number:[id number] Secondary Plan Desc: Secondary Plan Number: Assessment Information [facility] CM Progress Note CM Note CM Note Notes: Pt discussed in multi-discipline rounds. Pt is a 73yr old female admitted with left leg pain for 3 days, slight cough and SOB. Test/Scans showed a large DVT. Pt admitted for Heparin IV therapy overnight and to [facility] this morning for a thrombectomy. CM available should needs arise. Plan: TBD Date Signed: 12/09/2018 08:49 PM Electronically Signed By:Dania Fields LACE KIMBERLY Length of stay for Answers: 7-13 days current admission Acuity / Level of Answers: Yes Care: Did the patient have an inpatient admission? Comorbidities - select Answers: Diabetes (uncontrolled or all that apply controlled) Other Notes: HTN # of Emergency department Answers: 1-2 visits in the last 6 months Score: 11 Date Signed: 12/15/2018 04:21 PM Electronically Signed By:KODY Hsieh [facility] CM Progress Note CM Note CM Note Notes: Pt is here from [place] visiting with son Mohsen ) for a month or so. PT and OT to consult. Son is Ok if rehab is recommended to get Pt stronger and he does not have a choice where she goes. Pt will likely transfer out of ICU to a floor today after her CXR. Pt with a cough and developing soreness in her chest. Pt will be staying with her Son and his here in [place], they: both" Work during the day. CM available for needs. PLAN TBD once PT/OT consults Date Signed: 12/11/2018 11:58 AM Electronically Signed By:Dania Fields [facility] CM Progress Note CM Note CM Note Notes: 12/12/2018 Case Management Note Met w/pt and jewell Connolly to discuss d/c needs. Pt lives part of the year here in [place] with son and part of the year with daughter in [place] area. Team is recommending SNF rehab. Pt in agreement. Provided SNF list. Pt and son requested referrals to [facility]. [facility] is top choice. Faxed via [employer]. SNF will need to get auth prior to accepting patient. Case Management d/c poc: SNF rehab pending acceptance and auth. Case Management to follow. Date Signed: 12/12/2018 02:49 PM Electronically Signed By:Latonia Mckeon RN [facility] Progress Note CM Note CM Note Notes: 12/13/2018 Case Management Note Discussed with this morning. Spoke with Martha from [employer] on the phone and requested auth. Case Management d/c poc: [facility] rehab pending auth. Case Management to follow. Date Signed: 12/13/2018 12:24 PM Electronically Signed By:Latonia Mckeon RN Case Management Discharge Plan Note Case Management Discharge Discharge Order Complete? Answers: Yes Patient to Obtain Answers: Other [facility] Medications Transportation Arranged Answers: Family/Friends EMTALA Complete Answers: No Case Management Transport Answers: No Form Complete Faxed Final Orders Answers: Yes Agency/Facility Transfer Answers: Yes Report Printed & Faxed to Receiving Agency Family Notified Answers: Yes Discharge Comments Notes: Pts case discussed in tx rounds. [facility] was able to obtain auth. DC orders sent. FAMILIA spoke to pts son and he will provide transportation. [facility] will call to give report. CM available for changes. Plan: [facility] Date Signed: 12/15/2018 04:23 PM Electronically Signed By:KODY Hsieh Inter[facility]
--- NOTE | 2018-12-15 16:33 | GCON ---
[f rep st] CONSULTATION DATE OF CONSULTATION: 12/15/2018 REFERRING PHYSICIAN: Jesus Mazariegos MD REASON FOR CONSULTATION: Right breast abnormal imaging. HISTORY OF PRESENT ILLNESS: The patient is a very pleasant 73-year-old woman who presented to the emergency room complaining of leg pain. She was found to have extensive DVT extending into the left iliac vein. She underwent thrombolysis with stent placement. She was started on Eliquis. On admission, she had a CT chest, which identified a right retroareolar nodule. The patient reports that she is unsure when her last mammogram was, but that she has never had any abnormal imaging. She does not have a personal or family history of breast cancer. She does not take hormone replacement therapy. She is postmenopausal. PAST MEDICAL HISTORY: Left lower extremity DVT as above, community-acquired pneumonia, diabetes, hypertension. PAST SURGICAL HISTORY: Thrombolysis and stent placement as above, parotidectomy 2016. FAMILY HISTORY: Significant for type 2 diabetes and coronary artery disease. SOCIAL HISTORY: She has a son who is very involved in her care. She is a former smoker. No current tobacco, alcohol, or recreational drug use. REVIEW OF SYSTEMS: No fevers or chills. PHYSICAL EXAMINATION: GENERAL: Well-developed, well-nourished woman in no acute distress, accompanied by son who provided translation through this consultation. HEENT: Normocephalic, atraumatic. No hearing deficits. Pupils equal and round. No scleral icterus. Mucous membranes moist midline. RESPIRATORY: No increased work of breathing. CARDIOVASCULAR: No peripheral edema. LYMPH: There is no cervical, supine with supraclavicular or axillary lymphadenopathy. BREAST: Exam performed in upright and supine position. Large pendulous breast, symmetric. There were no palpable breast masses or nodules on physical exam of either breast. No overlying skin changes, nipple drainage, or other breast abnormalities. PSYCH: Mood and affect normal. NEURO : Grossly intact. IMPRESSION AND PLAN: 73-year-old woman with abnormal finding of a right breast nodule on CT angiogram. We recommend additional breast imaging as an outpatient , including diagnostic right diagnostic mammogram and ultrasound. Because the area is retroareolar, if she requires a biopsy, it would likely need to be a surgical biopsy. We will have the patient follow up in our office after her imaging has been completed to talk about further workup. Our information was provided for her and her son to make an appointment in our clinic. They may call imaging to set up the mammogram and ultrasound. Call with any additional questions or concerns. The patient was additionally seen by Dr. Molly Herrera who agrees with the above impression and plan. /[id number]/MODL MTDD
== END 2018-12-15 17:20 | DRG 252 ==
LOC: CED 12:37 → CEDHOLD 14:51 → F2N 17:26 → F2W 12-11 15:54
PROVIDERS: ADMIT Internal Medicine; ATTEND Internal Medicine
PROC: 3E03317 Introduction of Other Thrombolytic into Peripheral Vein, Percutaneous Approach (ICD-10-PCS; 2018-12-09)
PROC: 067D3DZ Dilation of Left Common Iliac Vein with Intraluminal Device, Percutaneous Approach (ICD-10-PCS; principal; 2018-12-11)
DX: I82.412 Acute embolism and thrombosis of left femoral vein (principal); I87.1 Compression of vein; J18.9 Pneumonia, unspecified organism; R91.1 Solitary pulmonary nodule; N63.10 Unspecified lump in the right breast, unspecified quadrant; R26.89 Other abnormalities of gait and mobility; E11.40 Type 2 diabetes mellitus with diabetic neuropathy, unspecified; Z79.4 Long term (current) use of insulin; I10 Essential (primary) hypertension; Z91.81 History of falling; Z87.891 Personal history of nicotine dependence
CPT/HCPCS: 85520-90; 93971-PO; 96365-ER; 96366-ER; 96375-ER; 97116-GP; 97161-GP; 97166-GO; 97530-GP; 97535-GO; 99285-ER; C1725; C1757; C1769; C1876; C1892; C1894; J1644; J1815; J1956; J2250; J2270; J2310; J2997; J3010; Q9967

== ENCOUNTER 2018-12-15 20:27 | Emergency (ER) | payer OTHER ==
[2018-12-15 20:35] VITALS: BP 172/102
--- NOTE | 2018-12-15 21:06 | EDPHY ---
H & P Time Seen by Provider: 12/15/18 20:45 HPI/ROS: CHIEF COMPLAINT: Needs medication refill HISTORY OF PRESENT ILLNESS: 73-year-old female discharged from the hospital this evening for community-acquired pneumonia, DVT, started on Levaquin, Eliquis. She is [facility] however upon arrival there did not have prescriptions, informs me that she was not discharged with prescriptions. She subsequently left against medical advice. The son brings to the ER stating that he feels comfortable taking care for at home. PRIMARY CARE PROVIDER: REVIEW OF SYSTEMS: 10 systems reviewed and negative with the exception of the elements mentioned in the history of present illness PAST MEDICAL & SURGICAL HISTORY: recent diagnosis of pneumonia, DVT, Garcia may syndrome SOCIAL HISTORY: Nonsmoker. Lives with son. PHYSICAL EXAM (Prior to examination, patient consented to physical exam, hands were washed and my usual and customary physical exam procedures followed) 1) GENERAL: Well-developed, well-nourished, alert and oriented. Appears to be in no acute distress. 2) HEAD: Normocephalic, atraumatic 3) HEENT: Pupils equal, round, reactive to light bilaterally. Sclera anicteric. 4) NECK: Full range of motion, no meningeal signs. 5) LUNGS: Clear auscultation bilaterally, no wheezes, no rhonchi, no retractions. 6) HEART: Regular rate and rhythm, no murmur, no heave, no gallop. 7) ABDOMEN: No guarding, no rebound, no focal tenderness, 8) MUSCULOSKELETAL: Left lower extremity normal coloration, normal temperature 9) BACK: no visual or palpable abnormality. 10) SKIN: No rash, no petechiae. 11) Psychiatric: Patient is oriented X 3, there is no agitation. DIFFERENTIAL DIAGNOSIS: In no particular order including but not limited to medicine refill, DVT, pneumonia Smoking Status: Former smoker Constitutional: Initial Vital Signs Temperature (C) 36.8 C 12/15/18 20:31 Heart Rate 114 H 12/15/18 20:31 Respiratory Rate 20 12/15/18 20:31 Blood Pressure 172/102 H 12/15/18 20:31 O2 Sat (%) 95 12/15/18 20:31 O2 Delivery Mode Room Air Allergies/Adverse Reactions: No Known Allergies Allergy (Unverified 12/15/18 20:31) Home Medications: Medication Instructions Recorded Insulin Glargine [Lantus] 30 unit SC HS 12/08/18 Linagliptin [Tradjenta] 5 mg PO DAILY 12/08/18 Melatonin [Melatonin 3 MG (*)] 3 mg PO HS 12/08/18 Omeprazole 20 mg PO DAILY 12/08/18 Pregabalin [Lyrica 50mg (*)] 50 mg PO BID 12/08/18 Acetaminophen [Tylenol 325mg (*)] 650 mg PO Q4HRS PRN tab 12/15/18 Apixaban [Eliquis 30-day Starter 1 kit PO AD #1 kit 12/15/18 Pack] Apixaban [Eliquis] 10 mg PO BID tab 12/15/18 Benzonatate [Tessalon Pearles (RX)] 200 mg PO TID PRN #15 cap 12/15/18 Benzonatate [Tessalon Pearles] 100 mg PO TID PRN cap 12/15/18 guaiFENesin/DEXTROMETHORPHAN 10 ml PO Q4HRS PRN ml 12/15/18 [Robitussin Dm Oral Liquid (*)] levOFLOXACIN [levAQUIN (*)] 750 mg PO DAILY 3 Days tab 12/15/18 levOFLOXACIN [levAQUIN (*)] 750 mg PO DAILY10 tab 12/15/18 MDM/Departure - MDM ED Course/Re-evaluation: Patient appears well. Eager to go home. I apologized to the patient and her son about being discharged from hospital doubt prescriptions. She has been given her evening dose of Eliquis. I am completing her prescriptions, notably she has been given a prescription for Levaquin 750 mg through December 18 as well as prescription for Eliquis 10 mg twice daily which will continue through December 17 and then transition to Eliquis 5 mg twice daily December 18 moving forward. She has also come prescription for Tessalon Perles. The son is planning on calling Dr. Magallon in the morning to follow-up . This information is based on the "Provider induration see discharge orders" form. Patient feels comfortable being discharged. All questions and concerns addressed by myself. Patient given my usual and customary discharge precautions and instructions regarding their clinical impression. Care of patient under supervision of secondary supervising physician Dr Reyna]. - Depart Disposition: Home, Routine, Self-Care Clinical Impression: Medication refill Condition: Good Instructions: Medicine Refill (ED) Prescriptions: Apixaban [Eliquis 30-day Starter Pack] 1 kit PO AD #1 kit Benzonatate [Tessalon Pearles (RX)] 200 mg PO TID PRN #15 cap PRN Reason: Cough, Moderate levOFLOXACIN [levAQUIN (*)] 750 mg PO DAILY 3 Days tab Referrals: Alexandria Magallon DO [Primary Care Provider] - 2-3 days, call for appt.
[2018-12-15] MEDS ORDERED: APIXABAN 5 MG TAB PO ONE (21:15)
== END 2018-12-15 21:55 | disposition home or self-care (01) ==
DX: Z76.0 Encounter for issue of repeat prescription (principal)